=== PATIENT | male | born 1975 ===

== ENCOUNTER → 2019-03-22 | Outpatient (CLI) | payer OTHER ==
[2019-03-22 20:07] LABS: Bun/Creatinine Ratio 24.8 (12.0-20.0); Creatinine, Blood 1.49 mg/dL (0.60-1.20); Potassium, Blood 4.5 mmol/L (3.5-5.5)
== END ==
LOC: LAB SHORT 19:21 → LAB 19:21
PROVIDERS: Family Medicine
DX: I50.9 Heart failure, unspecified (principal)
CPT/HCPCS: 80048